=== PATIENT | female | born 1985 | race Caucasian/White ===

== ENCOUNTER 2023-07-29 06:43 | Inpatient (IN) | payer BC ==
[2023-07-29] MEDS: Lactated Ringer's 1,000 ML IV SCH ×2 (07:19→11:51)
[2023-07-29] MEDS ORDERED: Acetaminophen 500 MG TAB PO PRN (07:32)
[2023-07-29] MEDS ORDERED: Docusate 100 MG CAP PO PRN (07:32)
[2023-07-29] MEDS ORDERED: Diphenoxylate HCl/Atropine Tablet PO PRN ×2 (07:32)
[2023-07-29] MEDS ORDERED: Misoprostol 200 MCG TAB PR PRN (07:32)
[2023-07-29] MEDS ORDERED: Lidocaine 1% (PF) 30 ML VIAL SC PRN (07:32)
[2023-07-29] MEDS ORDERED: Ibuprofen 800 MG TAB PO PRN (07:32)
[2023-07-29] MEDS ORDERED: HYDROcodone/Acetaminophen 5/325 mg Tablet PO PRN ×3 (07:32→13:18)
[2023-07-29] MEDS ORDERED: hydrALAZINE 20 MG/ML VIAL SLOW IVP PRN ×2 (07:32→13:18)
[2023-07-29] MEDS ORDERED: Ondansetron PF 4 MG/2 ML Vial IVP PRN ×3 (07:32→13:18)
[2023-07-29] MEDS ORDERED: Carboprost 250 MCG/ML AMP IM PRN (07:32)
[2023-07-29] MEDS ORDERED: Promethazine HCl 25 MG/ML VIAL IM PRN ×3 (07:32→13:18)
[2023-07-29] MEDS ORDERED: fentaNYL 50 mcg/mL 1 mL Vial SLOW IVP PRN (07:32)
[2023-07-29] MEDS ORDERED: Oxytocin 30 units/NS 500 ML 500 ML IV SCH ×4 (07:32→13:30)
[2023-07-29] MEDS ORDERED: Terbutaline Sulfate 1 MG/ML VIAL ONE (08:00)
[2023-07-29] MEDS ORDERED: Bupivacaine 0.25% HCL 30 ML VIAL ONE (08:00)
[2023-07-29 08:06] LABS: Hemoglobin 11.2 g/dL (12.0-15.5); Mean Corpuscular HGB CONC 32.9 g/dL (32.0-36.0); Mean Corpuscular Hemoglobin 29.3 pg (27.0-33.0); Platelet Count 141 10x3/uL (150-450); RBC Distribution Width 14.4 % (11.5-14.5); Red Blood Cell (RBC) Count 3.82 10x6/uL (3.90-5.03)
[2023-07-29 08:41] LABS: Syphilis Antibody Nonreactive (Nonreactive); Syphilis Antibody Index 0.04 S/CO (<1.00 Non-Reactive)
[2023-07-29 08:43] LABS: HBSAg Index 0.15 S/CO (0-0.99); HIV (1/2) Antibody/Antigen Non-Reactive (NonReactive); HIV 1/2 INDEX 0.08 S/CO (<1.00); Hep B Surf Ag - L&D Non-Reactive S/CO (NonReactive)
[2023-07-29 09:05] VITALS: BMI 26.4
[2023-07-29] MEDS ORDERED: fentaNYL/Ropivacaine Epidural 100 ML ONE (10:38)
[2023-07-29] MEDS ORDERED: Acetaminophen 325 MG TAB PO PRN (12:22)
[2023-07-29] MEDS ORDERED: Moisturizing Cream (Eucerin) 113 GM JAR TOP PRN (12:22)
[2023-07-29] MEDS ORDERED: diphenhydrAMINE 50 MG/ML VIAL IVP PRN (12:22)
[2023-07-29] MEDS ORDERED: ePHEDrine Sulfate 50 MG/10 ML VIAL SLOW IVP PRN (12:22)
[2023-07-29] MEDS ORDERED: Lactated Ringer's 500 ML IV PRN (12:22)
[2023-07-29] MEDS ORDERED: Naloxone HCl 0.4 mg/ml Vial IVP PRN ×2 (12:22)
[2023-07-29] MEDS ORDERED: fentaNYL 2 mcg/Ropivacaine 0.2% Epidural 100 ML CADD EPIDURAL SCH (12:30)
[2023-07-29] MEDS ORDERED: Communication Order-Pharmacy FS SCH (12:30)
[2023-07-29] MEDS ORDERED: diphenhydrAMINE 25 MG CAP PO PRN (13:18)
[2023-07-29] MEDS ORDERED: Methylergonovine 0.2 MG/ML VIAL IM PRN (13:18)
[2023-07-29] MEDS ORDERED: Misoprostol 200 MCG TAB VAG PRN (13:18)
[2023-07-29] MEDS ORDERED: Milk Of Magnesia 30 ML UDCUP PO PRN (13:18)
[2023-07-29] MEDS ORDERED: Boostrix 0.5 ML (Tdap) VIAL (>/=7 yrs of age) IM ONE (13:18)
[2023-07-29] MEDS ORDERED: Benzocaine-Menthol 82.5 ML CAN TOP PRN (13:18)
[2023-07-29] MEDS ORDERED: Lanolin Ointment 7 GM TUBE TOP PRN (13:18)
[2023-07-29] MEDS ORDERED: Bisacodyl 10 MG SUPP PR PRN (13:18)
[2023-07-29] MEDS ORDERED: Preparation H Ointment 28 GM TUBE PR PRN (13:18)
[2023-07-29] MEDS: Ferrous Sulfate 325 MG TAB PO SCH (17:13)
[2023-07-29] MEDS: Ibuprofen 800 MG TAB PO SCH ×2 (17:14→21:18)
[2023-07-29] MEDS: Docusate 100 MG CAP PO SCH (21:18)
[2023-07-30] MEDS: Ibuprofen 800 MG TAB PO SCH ×3 (05:31→21:47)
[2023-07-30] MEDS: Docusate 100 MG CAP PO SCH ×2 (08:25→21:47)
[2023-07-30] MEDS: HYDROcodone/Acetaminophen 5/325 mg Tablet PO PRN ×3 (10:32→22:27)
[2023-07-30] MEDS: Ferrous Sulfate 325 MG TAB PO SCH ×2 (10:35→18:36)
[2023-07-30] MEDS: Prenatal Vitamin 1 TAB PO SCH (10:36)
[2023-07-31] MEDS: Ibuprofen 800 MG TAB PO SCH (06:05)
[2023-07-31] MEDS: Ferrous Sulfate 325 MG TAB PO SCH (07:20)
[2023-07-31] MEDS: Docusate 100 MG CAP PO SCH (07:54)
[2023-07-31] MEDS: Prenatal Vitamin 1 TAB PO SCH (07:54)
[2023-07-31 08:07] VITALS: BP 114/70; TEMP 98.2
== END 2023-07-31 11:40 | disposition home or self-care (01) | DRG 807 ==
LOC: CSHLD 06:43 → CSHPP 15:15
PROVIDERS: ADMIT Obstetrics & Gynecology; ATTEND Obstetrics & Gynecology
PROC: 10E0XZZ Delivery of Products of Conception, External Approach (ICD-10-PCS; principal; 2023-07-29)
PROC: 0KQM0ZZ Repair Perineum Muscle, Open Approach (ICD-10-PCS; 2023-07-29)
DX: O99.02 Anemia complicating childbirth (principal); Z37.0 Single live birth; D64.9 Anemia, unspecified; O70.1 Second degree perineal laceration during delivery; O32.6XX0 Maternal care for compound presentation, not applicable or unspecified; Z3A.40 40 weeks gestation of pregnancy
CPT/HCPCS: 36415; 85027; 86780; 86850; 86900; 86901; 87340; 87389; J2590; J3010; J3105; J7120; S0020